=== PATIENT | female | born 1950 | race Caucasian/White ===

== ENCOUNTER 2017-04-19 04:17 | Inpatient (IN) | payer OTHER ==
[2017-04-19] VITALS (14 sets, daily range): BP systolic 149–213; BP diastolic 46–98; Ht 147.3 cm; Wt 49.9 kg
[~2017-04-19] VITALS: Ht 147.3 cm; Wt 49.9 kg
[2017-04-19] MEDS ORDERED: CLONIDINE HYDR0.3 M1 PO (05:05)
[2017-04-19] MEDS ORDERED: LOTENSIN40 MG PO (05:05)
[2017-04-19] MEDS ORDERED: HYDRALAZINE HCL50 MG PO (05:06)
[2017-04-19] MEDS ORDERED: PROCARDIA XL90 MG PO (05:06)
[2017-04-19] MEDS ORDERED: LABETALOL HYDR300 MG PO (05:06)
[2017-04-19 05:08] LABS: BASOPHIL % 0.4 % (0-2); PLATELET COUNT 145 x10^3mcL (130-400)
[2017-04-19 05:11] LABS: RED CELL DISTRIBUTION WIDTH 16.7 % (11.5-14.5)
[2017-04-19 05:26] LABS: ALBUMIN 3.2 g/dL (3.4-5.0); BILIRUBIN TOTAL 0.7 mg/dL (0.20-1.00); CALCIUM 9.7 mg/dL (8.5-10.1); CARBON DIOXIDE 30.2 mmol/L (21-32); POTASSIUM SERUM 3.9 mmol/L (3.5-5.1); TOTAL PROTEIN, SERUM 6.7 g/dL (6.4-8.2)
[2017-04-19 06:04] LABS: CK-MB 1.2 ng/mL (0-3.6)
[2017-04-19 07:14] LABS: MAGNESIUM 2.2 mg/dL (1.8-2.4); PHOSPHOROUS 5.6 mg/dL (2.5-4.9)
[2017-04-19 07:19] LABS: CHOLESTEROL/HDL RATIO 2.2
[2017-04-19 07:20] LABS: FREE T4 1.17 ng/dL (0.76-1.46); FREE THYROXINE INDEX 3.2 ug/dL (1.4-4.5); T4(THYROXINE) 9.3 ug/dL (4.7-13.3)
[2017-04-19 13:17] LABS: T3 TOTAL 0.93 ng/mL
[2017-04-20] VITALS (7 sets, daily range): BP systolic 114–204; BP diastolic 51–98
[2017-04-20 16:15] LABS: BASOPHIL % 0.2 % (0-2); PLATELET COUNT 149 x10^3mcL (130-400)
[2017-04-20 16:22] LABS: RED CELL DISTRIBUTION WIDTH 17.8 % (11.5-14.5)
[2017-04-20 16:25] LABS: CALCIUM 9.4 mg/dL (8.5-10.1); CARBON DIOXIDE 26.2 mmol/L (21-32); PHOSPHOROUS 4.4 mg/dL (2.5-4.9); POTASSIUM SERUM 3.8 mmol/L (3.5-5.1)
[2017-04-20 16:30] LABS: CREATININE SERUM 4.3 mg/dL (0.6-1.0)
[2017-04-21 05:25] VITALS: BP 139/72
[2017-04-21 05:45] LABS: PLATELET COUNT 143 x10^3mcL (130-400)
[2017-04-21 05:51] LABS: BASOPHIL % 0 % (0-2); RED CELL DISTRIBUTION WIDTH 17.8 % (11.5-14.5)
[2017-04-21 06:11] LABS: BILIRUBIN TOTAL 0.46 mg/dL (0.20-1.00); CALCIUM 9.5 mg/dL (8.5-10.1); CARBON DIOXIDE 27.1 mmol/L (21-32); POTASSIUM SERUM 4.5 mmol/L (3.5-5.1); TOTAL PROTEIN, SERUM 6.2 g/dL (6.4-8.2)
[2017-04-21 10:21] VITALS: BP 147/50
[2017-04-21 14:07] VITALS: BP 155/66
[2017-04-21 16:04] VITALS: BP 146/75
== END 2017-04-21 17:14 | disposition home or self-care (01) | DRG 291 ==
LOC: ED 04:17 → EDBD 04:17 → DU 06:22 → IC 06:22 → DU 17:05
PROVIDERS: Emergency Medicine; Family Medicine; ADMIT Student in an Organized Health Care Education/Training Program
DX: I13.2 Hypertensive heart and chronic kidney disease with heart failure and with stage 5 chronic kidney disease, or end stage renal disease (principal); N18.6 End stage renal disease; I50.43 Acute on chronic combined systolic (congestive) and diastolic (congestive) heart failure; N17.0 Acute kidney failure with tubular necrosis; J96.01 Acute respiratory failure with hypoxia; E44.1 Mild protein-calorie malnutrition; I16.0 Hypertensive urgency; E83.39 Other disorders of phosphorus metabolism; Z99.2 Dependence on renal dialysis; Z68.23 Body mass index [BMI] 23.0-23.9, adult
CPT/HCPCS: 36600; 82962; 83880; 84439; 94150; J0360; J1170; J1642; J1644; J2060; J2543; J2920; J2930; J7030; J7620; J7626; Q0092